=== PATIENT | female | born 1950 | race Caucasian/White ===

== ENCOUNTER 2022-12-09 22:37 | Emergency (ER) | payer MEDICAID, OTHER ==
[~2022-12-09] VITALS: Ht 152.4 cm; Wt 54.4 kg
[2022-12-09 22:57] VITALS: BP_SYST 137
--- NOTE | 2022-12-09 23:02 | NUR ---
Patient triaged and placed in waiting room. VSS and patient appears in no acute distress at this time. Accompanied by FAMILY, awaiting available bed, and MD notified of need for MSE.
[2022-12-09] MEDS ORDERED: MAG-AL HYDROX/SIMETH 30 ML UDC PO ONE (23:45)
--- NOTE | 2022-12-09 23:53 | NUR ---
ER at examining patient in triage room.
[2022-12-10 00:09] LABS: BASOPHILS # (AUTO) 0.1 K/uL (0.0-0.2); EOSINOPHILS # (AUTO) 0.5 K/uL (0.0-0.4); EOSINOPHILS % (AUTO) 9.4 % (0.0-4.0); HEMATOCRIT 36.1 % (36-48); HEMOGLOBIN 12.1 g/dL (12.0-16.0); LYMPHOCYTES # (AUTO) 1.4 K/uL (1.0-5.5); LYMPHOCYTES % (AUTO) 23.5 % (20.5-51.5); MEAN CORPUSCULAR HEMOGLOBIN 30 pg (27-31); MEAN CORPUSCULAR HGB CONC 34 % (32-36); MEAN CORPUSCULAR VOLUME 89 fL (79.0-98.0); MONOCYTES # (AUTO) 0.8 K/uL (0.0-1.0); MONOCYTES % (AUTO) 14.6 % (1.7-9.3); NEUTROPHILS % (AUTO) 51.5 % (40.0-70.0); PLATELET COUNT (AUTO) 281 K/uL (130-430); RED BLOOD CELL COUNT(AUTO) 4.05 MIL/uL (4.2-6.2); RED CELL DISTRIBUTION WIDTH 14.1 % (9.0-15.0); WHITE BLOOD COUNT (AUTO) 5.8 K/uL (4.8-10.8)
[2022-12-10 00:10] LABS: ANION GAP 9 (5-15); CALCIUM 9.3 mg/dL (8.4-11.0); CHLORIDE 102 mmol/L (98-107); CREATININE 0.71 mg/dL (0.55-1.30); GLUCOSE 103 mg/dL (70-99); UREA NITROGEN, BLOOD 16 mg/dL (8-21)
[2022-12-10 00:22] LABS: ALANINE AMINOTRANSFERASE 26 U/L (12-78); ALBUMIN 3.4 g/dL (3.4-4.8); ASPARTATE AMINOTRANSFERASE 20 U/L (10-37); TOTAL BILIRUBIN 0.3 mg/dL (0.0-1.0)
[2022-12-10] MEDS ORDERED: OMEP40CA20 PO (02:11)
[2022-12-10] MEDS ORDERED: CORTEARS EACH EAR (02:22)
[2022-12-10 02:49] VITALS: BP_SYST 141
--- NOTE | 2022-12-10 02:49 | NUR ---
Patient given written and verbal discharge instructions and verbalizes understanding. ER MD discussed with patient the results and treatment provided. Patient in stable condition. ID arm band removed. Rx of cortisporin, protonix given. Patient educated on pain management and to follow up with PMD. Pain Scale . Opportunity for questions provided and answered. Medication side effect fact sheet provided.
== END 2022-12-10 02:49 | disposition home or self-care (01) ==
LOC: SED 22:37
DX: J06.9 Acute upper respiratory infection, unspecified (principal); R10.13 Epigastric pain; R05.9 Cough, unspecified; J34.89 Other specified disorders of nose and nasal sinuses; Z79.899 Other long term (current) drug therapy; Z20.822 Contact with and (suspected) exposure to COVID-19
CPT/HCPCS: 36415; 71045; 80053; 84484; 85025; 99284

== ENCOUNTER 2023-01-05 18:15 | Emergency (ER) | payer MEDICAID ==
[~2023-01-05] VITALS: Ht 142.2 cm; Wt 63.5 kg
[~2023-01-05 18:15] MED LIST: CORTEARS EACH EAR; OMEP40CA20 PO
[2023-01-05 18:34] VITALS: BP_SYST 139
[2023-01-05] MEDS ORDERED: HYDROcodone/ACETAMIN 5-325 MG TAB (NORCO/ VICODIN) PO ONE (19:00)
[2023-01-05] MEDS ORDERED: KETOROLAC TROMETHAMINE 30 MG VIAL IM ONE (20:15)
[2023-01-05] MEDS ORDERED: LIDO1ADH71 TD (20:23)
[2023-01-05] MEDS ORDERED: ACET-2634 PO (20:23)
[2023-01-05] MEDS ORDERED: PSEU30TA36 PO (20:23)
[2023-01-05] MEDS ORDERED: TRAM50TA2 PO (20:23)
[2023-01-05] MEDS ORDERED: AUG875 PO (20:23)
[2023-01-05] MEDS ORDERED: FLOEARD RIGHT EAR (20:23)
[2023-01-05 20:55] VITALS: BP_SYST 139
== END 2023-01-05 20:55 | disposition home or self-care (01) ==
LOC: SED 18:15
DX: M54.50 Low back pain, unspecified (principal); H66.011 Acute suppurative otitis media with spontaneous rupture of ear drum, right ear; M54.32 Sciatica, left side; M79.662 Pain in left lower leg; Z79.899 Other long term (current) drug therapy
CPT/HCPCS: 99283; 96372; J1885